=== PATIENT | female | born 1940 | race African-American/Black ===

== ENCOUNTER 2017-06-29 19:07 | Emergency (ER) | payer OTHER ==
[~2017-06-29] VITALS: Ht 175.3 cm; Wt 65.8 kg
[~2017-06-29 19:07] MED LIST: HYDR-2758 PO; LOSA1TAB12 PO; SIMV40TA3 PO
[2017-06-29 19:15] VITALS: BP 161/79
--- NOTE | 2017-06-29 19:34 | PHYS DOC ---
Past Medical History Past Medical History: High Cholesterol, Hypertension Past Surgical History: Other Additional Past Surgical Histo: UNKNOWN Alcohol Use: None Drug Use: None Adult General Chief Complaint Chief Complaint: FOOT INJURY PAIN HPI HPI Patient is a 76 year old female presents to the emergency department stating that she tripped over her shoe and injured her left foot. She is having pain along the fourth and fifth metatarsal areas. She does have slight swelling with slight redness noted. She does have good sensation noted to her toes. Peripheral pulses are 2+ cap refill brisk less than 2 seconds. All information was interpreted by the son at the bedside due to the fact the patient speaks [place]. Patient had taken tramadol for the pain with relief noted. She has increase pain with weight bearing. Review of Systems Review of Systems Constitutional: Denies fever or chills [] Eyes: Denies change in visual acuity, redness, or eye pain [] HENT: Denies nasal congestion or sore throat [] Respiratory: Denies cough or shortness of breath [] Cardiovascular: No additional information not addressed in HPI [] GI: Denies abdominal pain, nausea, vomiting, bloody stools or diarrhea [] : Denies dysuria or hematuria [] Musculoskeletal: Denies back pain. Left foot pain Integument: Denies rash or skin lesions [] Neurologic: Denies headache, focal weakness or sensory changes [] Endocrine: Denies polyuria or polydipsia [] Allergies Allergies Allergies Coded Allergies Type Severity Reaction Last Updated Verified No Known Drug Allergies 10/01/15 No Physical Exam Physical Exam Constitutional: Well developed, well nourished, no acute distress, non-toxic appearance. [] HENT: Normocephalic, atraumatic, bilateral external ears normal, oropharynx moist, no oral exudates, nose normal. [] Eyes: PERRLA, EOMI, conjunctiva normal, no discharge. [] Neck: Normal range of motion, no tenderness, supple, no stridor. [] Cardiovascular:Heart rate regular rhythm, no murmur [] Lungs & Thorax: Bilateral breath sounds clear to auscultation [] Skin: Warm, dry, no erythema, no rash. [] Extremities: Left foot tenderness, no cyanosis, no clubbing, ROM intact, no edema. Slight swelling noted over the fourth and fifth metatarsal area, left foot. Pedal pulses 2+ cap refill brisk less than 2 seconds. Patient able to move the toes without difficulty. Neurologic: Alert and oriented X 3, normal motor function, normal sensory function, no focal deficits noted. [] Psychologic: Affect normal, judgement normal, mood normal. [] Current Patient Data Vital Signs Vital Signs Date Time Temp Pulse Resp B/P (MAP) Pulse Ox O2 Delivery O2 Flow Rate FiO2 06/29/17 19:15 98.2 82 16 97 Room Air 98.2 EKG EKG [] Radiology/Procedures Radiology/Procedures [] Course & Med Decision Making Course & Med Decision Making Pertinent Labs and Imaging studies reviewed. (See chart for details) Left foot x-ray was negative per Dr. Skaggs. Patient will be placed in Joaquin wrap and a postop shoe. Recommended ice packs on 20 minutes off 20 minutes several times a day elevation as much as possible. Patient does have tramadol at home in which she can use for pain and discomfort. Did recommend ibuprofen 200-400 mg every 8 hours to help with inflammation and swelling. Patient will also be provided with orthopedic name and number to follow up with. Signs symptoms to return back to emergency department as been provided. All questions and concerns have been answered at patient's bedside. [] Dragon Disclaimer Dragon Disclaimer This electronic medical record was generated, in whole or in part, using a voice recognition dictation system. Departure Departure Impression: Primary Impression: Left foot pain Disposition: 01 HOME, SELF-CARE Condition: STABLE Referrals: CARMEN HARRIS MD (PCP) Patient Instructions: Foot Sprain-Brief, RICE - Routine Care for Injuries, Easy -to-Read Additional Instructions: Your x-rays were negative for any bony abnormalities. Wear the Joaquin wrap for the next 7-10 days and wear the postop shoe to help with support. Continue to use her tramadol which you have at home for pain and discomfort. Ibuprofen 200-400 mg every 8 hours with food stop taking few develop an upset stomach. Ice packs on 20 minutes off 20 minutes several times today. Elevation as much as possible. Follow-up with orthopedic within the next week. Return back to emergency prior signs symptoms of become worse. TANYA BURK APRN Jun 29, 2017 19:34
--- NOTE | 2017-06-30 08:33 | RAD ---
Foot x-rays Indication: Trauma. Twisting left foot. Dorsal swelling. Pain at the bases of the third fourth and fifth metatarsals Technique: 3 views of the left foot Comparison: None Findings: No acute fracture or dislocation. No evidence of stress fracture. Mild diffuse osteopenia. No significant evidence of arthritic process. No soft tissue abnormality. Impression: No acute findings.
== END 2017-06-29 20:49 | disposition home or self-care (01) ==
LOC: ER 19:07
DX: M79.672 Pain in left foot (principal); I10 Essential (primary) hypertension; E78.00 Pure hypercholesterolemia, unspecified
CPT/HCPCS: 73630; 99284-25

== ENCOUNTER 2018-03-09 11:00 | Emergency (ER) | payer OTHER | END 2018-03-09 12:20 | disposition home or self-care (01) | LOC: ER 11:00 | DX: M54.5 Low back pain (principal); M25.552 Pain in left hip; I10 Essential (primary) hypertension; E78.00 Pure hypercholesterolemia, unspecified; Z91.81 History of falling | CPT/HCPCS: 72100; 73502; 99284 ==

== ENCOUNTER 2019-11-11 09:04 | Emergency (ER) | payer MEDICAID, OTHER ==
[~2019-11-11] VITALS: Ht 165.1 cm; Wt 70.6 kg
[~2019-11-11 09:04] MED LIST changes: +CYCL10TA2 PO; +DICL100G18 TP; -HYDR-2758 PO; +HYDR-2761 PO; +METH4TAB2 PO; +NAPR220C4 PO; +SIMV40TA18 PO; -SIMV40TA3 PO
--- NOTE | 2019-11-11 10:01 | PHYS DOC ---
Past Medical History Past Medical History: High Cholesterol, Hypertension Past Surgical History: No Surgical History Additional Past Surgical Histo: UNKNOWN Smoking Status: Never Smoker Alcohol Use: None Drug Use: None Adult General Chief Complaint Chief Complaint: MULTIPLE COMPLAINTS HPI HPI Patient is a 79 year old female who presents with [upper back pain. States for the last couple days, she has had upper back pain. Having the worse each day. States it feels more like an ache and a burning feeling up to her back. States she has had this in the past, last time this happened was when her cholesterol was high. She does follow up with Dr. Pandya, has not had her cholesterol evaluated in a while, last had her medications adjusted approximately 1 year ago. Denies any nausea, denies any vomiting, denies any shortness of breath, denies any additional complaints of some discomfort in her back. Denies falling. States that she is mainly concerned over her cholesterol] Review of Systems Review of Systems Constitutional: Denies fever or chills [] Eyes: Denies change in visual acuity, redness, or eye pain [] HENT: Denies nasal congestion or sore throat [] Respiratory: Denies cough or shortness of breath [] Cardiovascular: No additional information not addressed in HPI [] GI: Denies abdominal pain, nausea, vomiting, bloody stools or diarrhea [] : Denies dysuria or hematuria [] Musculoskeletal: Denies joint pain other than chronic arm pain, complains of upper back pain[] Integument: Denies rash or skin lesions [] Neurologic: Denies headache, focal weakness or sensory changes [] Endocrine: Denies polyuria or polydipsia [] All other systems were reviewed and found to be within normal limits, except as documented in this note. Allergies Allergies Allergies Coded Allergies Type Severity Reaction Last Updated Verified No Known Drug Allergies 10/01/15 No Physical Exam Physical Exam Constitutional: Well developed, well nourished, no acute distress, non-toxic appearance. [] HENT: Normocephalic, atraumatic, bilateral external ears normal, oropharynx moist, no oral exudates, nose normal. [] Eyes: PERRLA, EOMI, conjunctiva normal, no discharge. [] Neck: Normal range of motion, no tenderness, supple, no stridor. [] Cardiovascular:Heart rate regular rhythm, no murmur [] Lungs & Thorax: Bilateral breath sounds clear to auscultation [] Abdomen: Bowel sounds normal, soft, no tenderness, no masses, no pulsatile masses. [] Skin: Warm, dry, no erythema, no rash. no lesions noted to back [] Back: No tenderness, no CVA tenderness. [] Extremities: No tenderness, no cyanosis, no clubbing, ROM intact, no edema. [] Neurologic: Alert and oriented X 3, normal motor function, normal sensory function, no focal deficits noted. [] Psychologic: Affect normal, judgement normal, mood normal. [] Current Patient Data Vital Signs Vital Signs Date Time Temp Pulse Resp B/P (MAP) Pulse Ox O2 Delivery O2 Flow Rate FiO2 11/11/19 09:24 98.5 76 17 149/78 (101) 97 Room Air 98.5 Lab Values Laboratory Tests Test 11/11/19 10:03 White Blood Count 4.8 x10^3/uL (4.0-11.0) Red Blood Count 4.96 x10^6/uL (3.50-5.40) Hemoglobin 14.7 g/dL (12.0-15.5) Hematocrit 44.1 % (36.0-47.0) Mean Corpuscular Volume 89 fL (79-100) Mean Corpuscular Hemoglobin 30 pg (25-35) Mean Corpuscular Hemoglobin Concent 33 g/dL (31-37) Red Cell Distribution Width 13.8 % (11.5-14.5) Platelet Count 256 x10^3/uL (140-400) Neutrophils (%) (Auto) 48 % (31-73) Lymphocytes (%) (Auto) 34 % (24-48) Monocytes (%) (Auto) 13 % (0-9) H Eosinophils (%) (Auto) 3 % (0-3) Basophils (%) (Auto) 1 % (0-3) Neutrophils # (Auto) 2.3 x10^3/uL (1.8-7.7) Lymphocytes # (Auto) 1.7 x10^3/uL (1.0-4.8) Monocytes # (Auto) 0.6 x10^3/uL (0.0-1.1) Eosinophils # (Auto) 0.2 x10^3/uL (0.0-0.7) Basophils # (Auto) 0.0 x10^3/uL (0.0-0.2) Sodium Level 140 mmol/L (136-145) Potassium Level 3.8 mmol/L (3.5-5.1) Chloride Level 105 mmol/L (98-107) Carbon Dioxide Level 27 mmol/L (21-32) Anion Gap 8 (6-14) Blood Urea Nitrogen 11 mg/dL (7-20) Creatinine 0.7 mg/dL (0.6-1.0) Estimated GFR (Cockcroft-Gault) 97.9 BUN/Creatinine Ratio 16 (6-20) Glucose Level 97 mg/dL (70-99) Calcium Level 9.7 mg/dL (8.5-10.1) Total Bilirubin 0.5 mg/dL (0.2-1.0) Aspartate Amino Transferase (AST) 22 U/L (15-37) Alanine Aminotransferase (ALT) 19 U/L (14-59) Alkaline Phosphatase 71 U/L (46-116) Troponin I Quantitative 0.018 ng/mL (0.000-0.055) Total Protein 7.6 g/dL (6.4-8.2) Albumin 3.5 g/dL (3.4-5.0) Albumin/Globulin Ratio 0.9 (1.0-1.7) L Laboratory Tests 11/11/19 10:03 Laboratory Tests 11/11/19 10:03 EKG EKG Normal sinus, no STElevation. Per Dr Clark @[id number][] Radiology/Procedures Radiology/Procedures [] IMPRESSION: No acute cardiopulmonary process. Scoliosis. Consider further imaging if suspicious bony process is a persistent concern. Electronically signed by: Arun Dockery MD (11/11/2019 10:17 AM) [id number] Course & Med Decision Making Course & Med Decision Making Pertinent Labs and Imaging studies reviewed. (See chart for details) [Discussed findings with patient and family that abnormalities today and imaging or lab work. Discussed importance of following up with Dr. Pandya her primary care for management of her cholesterol. Discussed NSAIDs for discomfort, discussed symptoms may be related to her cholesterol medications. Family does report that the medication and changed recently from a surgical to normal. Discussed that medications often change from pharmacy based on availability and manufacture, if concern check with pharmacy to make sure this is the correct medications. Patient last had her cholesterol medication decreased proximal [address] Pandya's office. We'll provide Rx for topical NSAIDs for discomfort to use once a day] Paris Disclaimer Paris Disclaimer This electronic medical record was generated, in whole or in part, using a voice recognition dictation system. Departure Departure Impression: Primary Impression: Back pain Disposition: HOME, SELF-CARE Condition: STABLE Referrals: CARMEN PANDYA MD (PCP) Patient Instructions: Back Pain, Adult Additional Instructions: As we discussed, Use the muscle cream once a day. Try to get into Dr. Pandya's office to check your cholesterol, as well as to manage medication if needed. Scripts Diclofenac Sodium (DICLOFENAC SODIUM) 100 Gm Gel..gram. 100 GM TP DAILY16 PRN for PAIN for 7 Days, #7 EACH Prov: YAHIR SARAVIA APRN 11/11/19 Problem Qualifiers Primary Impression: Back pain Back pain location: thoracic back pain Chronicity: chronic Back pain laterality: bilateral Qualified Codes: M54.6 - Pain in thoracic spine; G89.29 - Other chronic pain YAHIR SARAVIA APRN Nov 11, 2019 10:01
[2019-11-11 10:19] LABS: BASO % 1 % (0-3); EOS # 0.2 x10^3/uL (0.0-0.7); EOS % 3 % (0-3); HEMATOCRIT 44.1 % (36.0-47.0); HEMOGLOBIN 14.7 g/dL (12.0-15.5); LYMPH # 1.7 x10^3/uL (1.0-4.8); LYMPH % 34 % (24-48); MEAN CORPUSCULAR HEMOGLOBIN 30 pg (25-35); MEAN CORPUSCULAR HGB CONC 33 g/dL (31-37); MEAN CORPUSCULAR VOLUME 89 fL (79-100); MONO # 0.6 x10^3/uL (0.0-1.1); MONO % 13 % (0-9); NEUT # 2.3 x10^3/uL (1.8-7.7); NEUT % 48 % (31-73); PLATELET COUNT 256 x10^3/uL (140-400); RED BLOOD COUNT 4.96 x10^6/uL (3.50-5.40); RED CELL DISTRIBUTION WIDTH 13.8 % (11.5-14.5); WHITE BLOOD COUNT 4.8 x10^3/uL (4.0-11.0)
--- NOTE | 2019-11-11 10:20 | RAD ---
CHEST AP ONLY Clinical Indication: Back pain Comparison: None. Findings: Portable upright frontal view the chest was obtained. The cardiomediastinal silhouette is normal. Lungs are clear. There is no pneumothorax. No pleural effusion is appreciated. No acute bone abnormality. Dextro convex scoliosis of the lower thoracic spine is present. IMPRESSION: No acute cardiopulmonary process. Scoliosis. Consider further imaging if suspicious bony process is a persistent concern. Electronically signed by: Arun Dockery MD (11/11/2019 10:17 AM) [id number]
[2019-11-11 10:25] LABS: CALCIUM 9.7 mg/dL (8.5-10.1); CREATININE 0.7 mg/dL (0.6-1.0); GFR 97.9; POTASSIUM 3.8 mmol/L (3.5-5.1)
[2019-11-11 10:31] LABS: ALBUMIN 3.5 g/dL (3.4-5.0); ALBUMIN/GLOBULIN RATIO 0.9 (1.0-1.7); TOTAL BILIRUBIN 0.5 mg/dL (0.2-1.0); TOTAL PROTEIN 7.6 g/dL (6.4-8.2)
[2019-11-11] MEDS ORDERED: DICL100G24 TP (11:17)
[2019-11-11 11:53] VITALS: BP 116/74
--- NOTE | 2019-11-12 00:02 | EKG ---
[facility] [address] [place] [address] Test Date: 2019-11-11 Test Time: 09:37:17 Pat Name: NICK URENA Department: Room: Gender: F [employer]: : 1940 Requested By: KASSIE MARQUEZ Order Number: [id number] Reading MD: Measurements Intervals [place] Rate: 77 P: 42 TX: 146 QRS: -12 QRSD: 86 T: 53 QT: 370 QTc: 420 Interpretive Statements SINUS RHYTHM LEFTWARD AXIS OTHERWISE NORMAL ECG RI6.01 No previous ECG available for comparison
== END 2019-11-11 12:11 | disposition home or self-care (01) ==
LOC: ER 09:04
DX: G89.29 Other chronic pain (principal); M54.6 Pain in thoracic spine; I10 Essential (primary) hypertension; E78.00 Pure hypercholesterolemia, unspecified
CPT/HCPCS: 36415; 71045; 80053; 84484; 85025; 93005; 99285-25